=== PATIENT | male | born 1975 | race Caucasian/White ===

== ENCOUNTER 2019-03-05 10:11 | Emergency (ER) | payer MEDICAID ==
[~2019-03-05] VITALS: Ht 175.3 cm; Wt 113.0 kg
[2019-03-05] MEDS ORDERED: SODIUM CHLORIDE 0.9% 1,000 ML IV ONE (10:53)
[2019-03-05] MEDS ORDERED: BRIV100T PO (11:24)
[2019-03-05] MEDS ORDERED: CLOB20TA3 PO (11:24)
[2019-03-05] MEDS ORDERED: CLOB10TA3 PO (11:24)
[2019-03-05] MEDS ORDERED: LAMO100T65 PO (11:24)
[2019-03-05 11:30] LABS: EOSINOPHILS % 1.8 % (0.0-5.0); HEMATOCRIT. 40.8 % (42.0-52.0); HEMOGLOBIN. 13.6 g/dL (14.0-18.0); LYMPHOCYTES % 13.9 % (20.0-50.0); MEAN CORPUSCULAR HEMOGLOBIN 28.6 pg (28.0-32.0); MEAN CORPUSCULAR VOLUME 85.7 fL (80.0-94.0); MEAN PLATELET VOLUME 7.8 fl (7.4-10.4); MONOCYTES % 11.8 % (2.0-8.0); NEUTROPHILS % 71.5 % (40.0-76.0); PLATELET 320 x1000/uL (130-400); RED BLOOD CELL COUNT 4.76 mill/uL (4.7-6.1); RED CELL DISTRIBUTION WIDTH 17.3 % (11.6-14.6)
[2019-03-05 11:33] LABS: CHLORIDE 107 mEq/L (98-107); PROTHROMBIN TIME 10.3 sec (9.6-11.0)
[2019-03-05 12:06] LABS: CLARITY URINE CLEAR (CLEAR); COLOR URINE YELLOW (YELLOW); KETONES URINE NEGATIVE (NEGATIVE); LEUKOCYTE ESTERASE URINE NEGATIVE (NEGATIVE); NITRITE URINE NEGATIVE (NEGATIVE); OCCULT BLOOD URINE NEGATIVE (NEGATIVE); PH URINE 7.5 (4.5-8.0); PROTEIN URINE NEGATIVE (NEGATIVE); SPECIFIC GRAVITY URINE 1.006 (1.005-1.030); UROBILINOGEN URINE 0.2 E.U./dL (0.2-1.0)
[2019-03-05] MEDS ORDERED: ASPIRIN 325MG EC TABLET PO ONE (12:30)
[2019-03-05] MEDS ORDERED: CLONIDINE 0.1MG TABLET PO NR (15:45)
[2019-03-05 16:52] VITALS: BP 140/82
== END 2019-03-05 16:54 | disposition home or self-care (01) ==
LOC: ER 10:21 → EDBEDREQ 12:25 → EDBEDREQTM 12:25 → CANBEDREQ 16:50 → ER 16:54
DX: R07.89 Other chest pain (principal); G93.41 Metabolic encephalopathy; I10 Essential (primary) hypertension; F32.9 Major depressive disorder, single episode, unspecified; G62.9 Polyneuropathy, unspecified; F10.21 Alcohol dependence, in remission; R06.02 Shortness of breath; Y90.9 Presence of alcohol in blood, level not specified; Z90.89 Acquired absence of other organs; Z79.899 Other long term (current) drug therapy
CPT/HCPCS: 36415; 70450; 71045; 80053; 81003; 83605; 83880; 84484; 85025; 85610; 93005; 96360; 96361; 99284; J7030

== ENCOUNTER 2019-03-10 11:30 | Emergency (ER) | payer MEDICAID ==
[~2019-03-10] VITALS: Ht 175.3 cm; Wt 113.0 kg
[~2019-03-10 11:30] MED LIST: BRIV100T PO; CLOB10TA3 PO; CLOB20TA3 PO; LAMO100T65 PO
[2019-03-10 12:30] VITALS: BP 138/90
== END 2019-03-10 12:35 | disposition home or self-care (01) ==
LOC: ER 12:28
DX: I10 Essential (primary) hypertension (principal); Z90.89 Acquired absence of other organs; Z79.899 Other long term (current) drug therapy
CPT/HCPCS: 99283

== ENCOUNTER 2019-03-24 09:18 | Emergency (ER) | payer MEDICAID ==
[~2019-03-24] VITALS: Ht 175.3 cm; Wt 100.0 kg
[2019-03-24 10:36] VITALS: BP 132/89
== END 2019-03-24 10:35 | disposition home or self-care (01) ==
LOC: ER 09:18
DX: I10 Essential (primary) hypertension (principal); Z90.89 Acquired absence of other organs; Z79.899 Other long term (current) drug therapy
CPT/HCPCS: 99283